=== PATIENT | female | born 1960 | race Caucasian/White ===

== ENCOUNTER → 2019-05-07 | Outpatient (CLI) | payer OTHER ==
--- NOTE | 2019-05-07 11:37 | REPMRS ---
Patient History The patient states she has not had a clinical breast exam in over a year. No known family history of cancer. Benign excisional biopsy of the left breast. Benign excisional biopsy of the right breast. 3D TOMOSYNTHESIS WAS PERFORMED. [facility] lifetime risk for breast cancer is 7.8%. Digital Mammo Screening Bilat: May 07, 2019 - Exam #: [id number] Bilateral CC and MLO view(s) were taken. Technologist: Myla López Technologist Prior study comparison: September 14, 2014, digital woman screen mammo, performed at [facility]. FINDINGS: The breast tissue is extremely dense which could obscure a lesion on mammography. There is no evidence of cancer on this mammogram. Assessment: BI-RADS/ACR category 2 mammogram. Benign Findings. Recommendation Routine screening mammogram of both breasts in 1 year (for women over age 40). This mammogram was interpreted with the aid of an FDA-approved computer-aided dectection system. Electronically Signed By: Ezra Bey MD 05/07/19 [id number]
== END ==
LOC: M RAD 10:52
PROVIDERS: ATTEND Nurse Practitioner Family
DX: Z12.31 Encounter for screening mammogram for malignant neoplasm of breast (principal)

== ENCOUNTER → 2019-05-13 | Outpatient (REF) | payer OTHER, MEDICAID ==
[2019-05-13 12:56] LABS: BASO % 0.6 % (0.0-1.0); EOS # 0.1 10^3/uL (0.0-0.5); EOS % 1.7 % (0.0-3.0); HEMATOCRIT 46.7 % (36.0-47.0); HEMOGLOBIN 14.5 g/dl (12.0-15.5); LYMPH # 2.2 10^3/uL (1.5-5.0); LYMPH % 31.1 % (24.0-44.0); MEAN CORPUSCULAR HEMOGLOBIN 30.5 pg (27.0-33.0); MEAN CORPUSCULAR VOLUME 98.3 fl (80.0-96.0); MONO # 0.6 10^3/uL (0.0-0.8); MONO % 8.1 % (0.0-5.0); NEUTROPHILS # 4.2 10^3/uL (1.5-8.5); NEUTROPHILS % 58.2 % (36.0-66.0); PLATELET COUNT, AUTOMATED 260 10^3/uL (150-450); RED BLOOD COUNT 4.75 10^6/uL (4.00-5.40); WHITE BLOOD COUNT 7.2 10^3/uL (4.0-10.0)
[2019-05-13 13:03] LABS: ALBUMIN 3.9 GM/DL (3.2-5.2); ALT/SGPT 23 U/L (12-78); BILIRUBIN,TOTAL 0.5 MG/DL (0.2-1.0); BLOOD UREA NITROGEN 12 MG/DL (7-18); CALCIUM LEVEL 8.5 MG/DL (8.5-10.1); CARBON DIOXIDE LEVEL 29 MEQ/L (21-32); CHLORIDE LEVEL 110 MEQ/L (98-107); CHOLESTEROL LEVEL 146 MG/DL (<200); CHOLESTEROL RISK RATIO 2.115 (<5); CREATININE FOR GFR 0.92 MG/DL (0.55-1.30); FREE T4 0.79 NG/DL (0.76-1.46); GLOMERULAR FILTRATION RATE > 60.0 (>51); GLUCOSE, FASTING 91 MG/DL (70-100); HDL CHOLESTEROL 69 MG/DL (>40); LDL CHOLESTEROL 59 MG/DL (<100); NON-HDL-C 77 MG/DL; POTASSIUM SERUM 4.3 MEQ/L (3.5-5.1); SODIUM LEVEL 143 MEQ/L (136-145); TOTAL PROTEIN 6.9 GM/DL (6.4-8.2); TRIGLYCERIDES LEVEL 88 MG/DL (<150)
[2019-05-13 13:27] LABS: TOTAL 25(OH) VITAMIN D 31.4 NG/ML (30.0-100.0)
== END ==
LOC: M LAB REF 11:50
PROVIDERS: ATTEND Nurse Practitioner Family
DX: Z13.29 Encounter for screening for other suspected endocrine disorder (principal); Z13.220 Encounter for screening for lipoid disorders

== ENCOUNTER → 2019-10-08 | Outpatient (REF) | payer OTHER, MEDICAID ==
[2019-10-08 13:12] LABS: HEMOGLOBIN A1c 6.1 %
== END ==
LOC: M LAB REF 11:57
PROVIDERS: ATTEND Nurse Practitioner Family
DX: R73.03 Prediabetes (principal)

== ENCOUNTER → 2019-12-08 | Outpatient (CLI) | payer OTHER ==
--- NOTE | 2019-12-08 16:54 | REP ---
AP AND LATERAL VIEWS OF THE CERVICAL, THORACIC AND LUMBAR SPINE: REASON: Chronic pain. Prior lumbar spine examination 01/31/2011 and prior cervical spine examination 05/13/2010 reviews. Hypertrophic degenerative facet and uncovertebral joint changes have significantly increased compared to the prior exam along with disc space narrowing. Disc space narrowing is seen particularly at the C6-7 level where anterior and posterior osteophytic ridging is the heaviest. Degenerative facet and uncovertebral joint changes are particularly at the C4-5, C5-6, and C6-7 levels on the right. Vertebral body height and alignment is unchanged. Thoracic spine vertebral body height and alignment is within normal limits. There is mild anterior disc space narrowing at every level with mild anterior lipping. The lumbar spine disc spaces have narrowed when compared to the prior exam particularly posteriorly with universal L5-S1 disc space narrowing and air density in the L5-S1 disc space consistent with vacuum phenomena from degenerative disease. Facet joint degenerative change is again noted increased slightly from the prior exam. IMPRESSION: Chronic changes as described above. Electronically Signed by Dionisio Narayan DO 12/08/2019 07:09 P
== END ==
LOC: M RAD 13:15
PROVIDERS: ATTEND Family Medicine
DX: M54.2 Cervicalgia (principal); M54.89 Other dorsalgia; M51.35 Other intervertebral disc degeneration, thoracolumbar region

== ENCOUNTER → 2019-12-18 | Outpatient (CLI) | payer OTHER ==
--- NOTE | 2019-12-18 10:12 | REP ---
Clinical: Lung screening. History smoking. Comparison: None Technique: Axial low-dose noncontrast images from the thoracic inlet to the upper abdomen using lung screening technique. Findings: The lung contreras demonstrate advanced COPD/emphysematous changes with biapical and basilar scarring. Scattered calcified granulomata noted. No consolidation, significant nodule or mass lesion is appreciated. No pleural effusion/reaction or pneumothorax. Tracheobronchial tree is patent. Mediastinum demonstrates mild atherosclerotic changes of the coronary arteries without cardiomegaly. Impression: Lung-RADS category II. No significant nodule or suspicious abnormality. Emphysematous disease with scattered calcified granulomata. Management recommendations include annual low-dose CT evaluation. Electronically Signed by Severiano Sanchez MD 12/18/2019 10:04 A
== END ==
LOC: M RAD 09:46
PROVIDERS: ATTEND Physician Assistant
DX: Z12.2 Encounter for screening for malignant neoplasm of respiratory organs (principal); F17.218 Nicotine dependence, cigarettes, with other nicotine-induced disorders

== ENCOUNTER → 2019-12-30 | Outpatient (CLI) | payer OTHER ==
--- NOTE | 2019-12-30 11:48 | REPVR ---
PROCEDURE INFORMATION: Exam: MR Head Without Contrast Exam date and time: 12/30/2019 10:14 AM Age: 59 years old Clinical indication: Dizziness and other: Giddiness; Additional info: R42 dizziness giddiness TECHNIQUE: Imaging protocol: MR of the head without contrast. COMPARISON: No relevant prior studies available. FINDINGS: Brain: Focus of equivocal signal in the left medulla on DWI image 1 of series 404, likely artifact (appears isointense on the ADC map). No definite acute infarct. No evidence of brain parenchymal edema or intracranial mass effect. The T2 weighted imaging demonstrates a few scattered foci of increased signal intensity in the deep white matter most likely representing trace chronic small vessel ischemic change. No significant white matter disease for the patient's age. Ventricles: Normal. No ventriculomegaly. Bones/joints: Unremarkable. Sinuses: Trace ethmoid sinus mucosal thickening. Mastoid air cells: Normal as visualized. No mastoid effusion. Orbits: Unremarkable. Soft tissues: Unremarkable. IMPRESSION: Essentially unremarkable MRI brain for age. Electronically signed by: Reyna Singh On 12/30/2019 11:48:19 AM
== END ==
LOC: M RAD 09:27
PROVIDERS: ATTEND Nurse Practitioner Family
DX: R42 Dizziness and giddiness (principal); M54.2 Cervicalgia

== ENCOUNTER → 2020-06-30 | Outpatient (CLI) | payer OTHER ==
--- NOTE | 2020-07-01 11:58 | REP ---
INDICATION: PAIN. COMPARISON: None. TECHNIQUE: AP and Lateral views of the neck FINDINGS: Airway is patent and normal. Surrounding soft tissues are unremarkable. Skeletal structures demonstrate moderate degenerative changes. No foreign body. IMPRESSION: Normal age appropriate examination of the soft tissue neck <Electronically signed by Severiano Sanchez > 07/01/20 [id number]
--- NOTE | 2020-07-01 12:19 | REP ---
INDICATION: PAIN IN THORACIC SPINE COMPARISON: 01/31/2011 TECHNIQUE: AP, lateral, bilateral oblique, and coned-down views of the lumbar spine. FINDINGS: Alignment and lordosis maintained. Vertebral bodies are intact. No acute fracture/compression injury or subluxation. No obvious spondylolysis or spondylolisthesis. Moderate degenerative changes including endplate sclerosis, disc space narrowing and facet arthropathy at L5/S1 and lesser at L4/5. IMPRESSION: Moderate degenerative spondylosis at L4/5 and L5/S1 <Electronically signed by Severiano Sanchez > 07/01/20 [id number]
--- NOTE | 2020-07-01 12:21 | REP ---
INDICATION: PAIN IN THORACIC SPINE COMPARISON: None. TECHNIQUE: AP, lateral views of the thoracic spine FINDINGS: Alignment and kyphosis is maintained. Vertebral bodies intact. No acute fracture / compression injury or subluxation. Minimal age related changes include subtle endplate sclerosis and marginal spurring. Paravertebral soft tissues are normal. IMPRESSION: Mild age related changes. <Electronically signed by Severiano Sanchez > 07/01/20 [id number]
--- NOTE | 2020-07-01 12:22 | REP ---
INDICATION: PAIN IN THORACIC SPINE. COMPARISON: None. TECHNIQUE: AP, lateral, and swimmer's views of the cervical spine. FINDINGS: Alignment and lordosis maintained. Moderate degenerative changes include endplate sclerosis, marginal spurring and minimal disc space narrowing primarily involving C6-7 and to a lesser extent C5-6. No acute fracture/compression injury or subluxation. Surrounding soft tissues are normal. IMPRESSION: Moderate focal degenerative spondylosis primarily C6-7 and C5-6. <Electronically signed by Severiano Sanchez > 07/01/20 [id number]
== END ==
LOC: M RAD 13:45
PROVIDERS: ATTEND Nurse Practitioner Family
DX: M54.5 Low back pain (principal)

== ENCOUNTER → 2021-03-14 | Outpatient (CLI) | payer OTHER ==
--- NOTE | 2021-03-14 15:54 | REP ---
INDICATION: NICOTINE DEPENDENCE. COMPARISON: 12/18/2019 the only prior TECHNIQUE: Axial noncontrast images from the thoracic inlet to the upper abdomen using low-dose lung screening technique (LDCT). As per the protocol only lung window images were sent to the read station for interpretation FINDINGS: There are rather marked emphysematous changes status quo. There is cylindrical bronchiectasis status quo. There are incidental calcified granulomas status quo. There is biapical pleuroparenchymal scarring status quo. No new abnormal nodules, masses, or opacities have developed. Grossly, the mediastinum and pulmonary aldo are unchanged. Grossly, the imaged upper abdomen and imaged osseous structures are unchanged. IMPRESSION: Advanced but stable appearing chronic lung field changes as described above. Lung rads category 2 S <Electronically signed by Dionisio Narayan > 03/14/21 [id number]
== END ==
LOC: M RAD 14:56
PROVIDERS: ATTEND Physician Assistant
DX: F17.210 Nicotine dependence, cigarettes, uncomplicated (principal)

== ENCOUNTER 2022-07-09 11:15 | Emergency (ER) | payer OTHER ==
[~2022-07-09] VITALS: Ht 160 cm; Wt 42.8 kg
[2022-07-09] MEDS ORDERED: INCR1INH (11:31)
[2022-07-09] MEDS ORDERED: DULO1CAP5 (11:31)
[2022-07-09] MEDS ORDERED: ALBU8.5H (11:31)
[2022-07-09] MEDS ORDERED: OMEP-173 (11:31)
[2022-07-09 17:13] LABS: BASO % 0.5 % (0.0-1.0); EOS # 0.1 10^3/uL (0.0-0.5); HEMATOCRIT 46.7 % (36.0-47.0); HEMOGLOBIN 15.2 g/dl (12.0-15.5); LYMPH # 1.4 10^3/uL (1.5-5.0); MEAN CORPUSCULAR HEMOGLOBIN 30.4 pg (27.0-33.0); MEAN CORPUSCULAR HGB CONC 32.5 g/dl (32.0-36.5); MEAN CORPUSCULAR VOLUME 93.4 fl (80.0-96.0); MONO # 0.6 10^3/uL (0.0-0.8); MONO % 9.6 % (2.0-8.0); NEUTROPHILS # 3.7 10^3/uL (1.5-8.5); NEUTROPHILS % 64.6 % (36.0-66.0); PLATELET COUNT, AUTOMATED 269 10^3/uL (150-450); WHITE BLOOD COUNT 5.7 10^3/uL (4.0-10.0)
[2022-07-09 17:27] LABS: ERYTHROCYTE SEDIMENTATION RATE 15 mm/hr (0-30)
[2022-07-09 17:35] LABS: ALBUMIN 4.4 G/DL (3.2-5.2); ALKALINE PHOSPHATASE 71 U/L (46-116); ALT/SGPT 24 U/L (7.0-40); AST/SGOT 27 U/L (<34); BILIRUBIN,DIRECT < 0.1 MG/DL (<0.4); BILIRUBIN,TOTAL 0.3 MG/DL (0.3-1.2); C REACTIVE PROTEIN QUANTITATIV < 0.40 MG/DL (<1.0); CHOLESTEROL LEVEL 174 MG/DL (<200); CHOLESTEROL RISK RATIO 2.49 (<5); HDL CHOLESTEROL 69.7 MG/DL (>40); LDL CHOLESTEROL 93.7 MG/DL (<100); NON-HDL-C 104 MG/DL; TOTAL PROTEIN 7.5 G/DL (5.7-8.2); TRIGLYCERIDES LEVEL 53 MG/DL (<150)
[2022-07-09 17:40] LABS: INR 0.93; PROTHROMBIN TIME 12.7 SECONDS (12.5-14.5)
[2022-07-09 17:41] LABS: PARTIAL THROMBOPLASTIN TIME 29.3 SECONDS (24.8-34.2)
[2022-07-09] MEDS ORDERED: ISOVUE-370 76% 100ML VIAL As Ordered ONE (18:13)
[2022-07-09 20:30] VITALS: BP 145/79
[2022-07-09] MEDS ORDERED: FLUCONAZOLE 50MG TABLET PO ONE (22:00)
== END 2022-07-09 22:53 | disposition home or self-care (01) ==
LOC: M ED 16:07
DX: I73.9 Peripheral vascular disease, unspecified (principal); B35.3 Tinea pedis; J44.9 Chronic obstructive pulmonary disease, unspecified; K21.9 Gastro-esophageal reflux disease without esophagitis; F31.9 Bipolar disorder, unspecified; F43.10 Post-traumatic stress disorder, unspecified; F90.9 Attention-deficit hyperactivity disorder, unspecified type; F17.200 Nicotine dependence, unspecified, uncomplicated; Z88.0 Allergy status to penicillin; Z88.1 Allergy status to other antibiotic agents; Z88.8 Allergy status to other drugs, medicaments and biological substances; Z79.51 Long term (current) use of inhaled steroids; Z79.899 Other long term (current) drug therapy

== ENCOUNTER → 2022-12-06 | Outpatient (CLI) | payer OTHER ==
[~2022-12-06] MED LIST: ALBU8.5H; DULO1CAP5; INCR1INH; OMEP-173
== END ==
LOC: M RAD 12:23
PROVIDERS: ATTEND Physician Assistant
DX: Z87.891 Personal history of nicotine dependence (principal)

== ENCOUNTER → 2022-12-27 | Outpatient (CLI) | payer OTHER | LOC: M WHC 12:49 | PROVIDERS: ATTEND Physician Assistant Medical | DX: N63.11 Unspecified lump in the right breast, upper outer quadrant (principal) ==

== ENCOUNTER → 2023-09-11 | Outpatient (REF) | payer OTHER ==
[2023-09-11 18:00] LABS: BASO % 0.7 % (0.0-1.0); EOS # 0.1 10^3/uL (0.0-0.5); EOS % 1.6 % (0.0-3.0); HEMATOCRIT 42.1 % (36.0-47.0); HEMOGLOBIN 13.9 g/dl (12.0-15.5); LYMPH # 2.4 10^3/uL (1.5-5.0); LYMPH % 39.5 % (24.0-44.0); MEAN CORPUSCULAR HEMOGLOBIN 30.8 pg (27.0-33.0); MEAN CORPUSCULAR VOLUME 93.1 fl (80.0-96.0); MONO # 0.5 10^3/uL (0.0-0.8); MONO % 8.1 % (2.0-8.0); NEUTROPHILS % 49.8 % (36.0-66.0); PLATELET COUNT, AUTOMATED 264 10^3/uL (150-450); RED BLOOD COUNT 4.52 10^6/uL (4.00-5.40); WHITE BLOOD COUNT 6.1 10^3/uL (4.0-10.0)
[2023-09-11 18:02] LABS: HEMOGLOBIN A1c 5.8 % (4.0-6.0)
[2023-09-11 18:16] LABS: BLOOD UREA NITROGEN 16 MG/DL (9-23); CARBON DIOXIDE LEVEL 28 MMOL/L (20-31); CHLORIDE LEVEL 110 MMOL/L (98-107); CHOLESTEROL LEVEL 187 MG/DL (<200); CHOLESTEROL RISK RATIO 3.15 (<5); CREATININE FOR GFR 0.69 MG/DL (0.55-1.30); GLOMERULAR FILTRATION RATE > 60.0 (>45); GLUCOSE, FASTING 84 MG/DL (74-106); HDL CHOLESTEROL 59.2 MG/DL (>40); LDL CHOLESTEROL 113.6 MG/DL (<100); NON-HDL-C 127.8 MG/DL; POTASSIUM SERUM 4.6 MMOL/L (3.5-5.1); SODIUM LEVEL 139 MMOL/L (136-145); TRIGLYCERIDES LEVEL 71 MG/DL (<150)
[2023-09-11 18:18] LABS: THYROID STIMULATING HORMONE 2.205 uIU/ML (0.55-4.78)
== END ==
LOC: M LAB REF 16:36
PROVIDERS: ATTEND Nurse Practitioner Family
DX: R20.2 Paresthesia of skin (principal); R03.0 Elevated blood-pressure reading, without diagnosis of hypertension; R63.6 Underweight; Z11.9 Encounter for screening for infectious and parasitic diseases, unspecified

== ENCOUNTER → 2024-04-25 | Outpatient (CLI) | payer OTHER | LOC: M RAD 11:56 | PROVIDERS: ATTEND Physician Assistant | DX: Z12.2 Encounter for screening for malignant neoplasm of respiratory organs (principal); F17.218 Nicotine dependence, cigarettes, with other nicotine-induced disorders ==

== ENCOUNTER → 2024-09-03 | Outpatient (CLI) | payer OTHER | LOC: M WHC 14:40 | PROVIDERS: ATTEND Nurse Practitioner Family | DX: Z12.31 Encounter for screening mammogram for malignant neoplasm of breast (principal); M81.0 Age-related osteoporosis without current pathological fracture ==